=== PATIENT | male | born 1950 | race Caucasian/White ===

== ENCOUNTER 2017-03-28 15:50 | Emergency (ER) | payer OTHER, MEDICAID ==
[2017-03-28 18:28] LABS: BASOPHIL % 0.6 % (0-2); PLATELET COUNT 191 x10^3mcL (130-400); RED CELL DISTRIBUTION WIDTH 14.2 % (11.5-14.5)
[2017-03-28 18:40] LABS: CALCIUM 8.2 mg/dL (8.5-10.1); CARBON DIOXIDE 25.1 mmol/L (21-32); CHLORIDE SERUM 103 mmol/L (98-107); CREATININE SERUM 0.7 mg/dL (0.7-1.3); GFR1 > 60 mL/min; GLUCOSE SERUM 86 mg/dL (74-106); POTASSIUM SERUM 3.4 mmol/L (3.5-5.1); SODIUM SERUM 140 mmol/L (136-145)
[2017-03-28 18:55] LABS: ALKALINE PHOSPHATASE 86 U/L (46-116); AST/SGOT 11 U/L (15-37); BILIRUBIN TOTAL 0.91 mg/dL (0.20-1.00); T4(THYROXINE) 9.6 ug/dL (4.7-13.3); TOTAL PROTEIN, SERUM 7.1 g/dL (6.4-8.2)
[2017-03-28 19:05] LABS: UA SPECIFIC GRAVITY <=1.005 (1.005-1.035); microscopic required? YES; urine erythrocyte 3+ (NEGATIVE)
[2017-03-28 19:07] LABS: ALT/SGPT 14 U/L (16-63)
[2017-03-28 19:15] LABS: ALBUMIN 3.1 g/dL (3.4-5.0)
[2017-03-28 20:47] VITALS: BP 157/94
== END 2017-03-28 20:47 | disposition home or self-care (01) ==
LOC: ED 15:50
PROVIDERS: Emergency Medicine
DX: N39.0 Urinary tract infection, site not specified (principal); D64.9 Anemia, unspecified; I10 Essential (primary) hypertension; G81.91 Hemiplegia, unspecified affecting right dominant side; E87.6 Hypokalemia; Z88.0 Allergy status to penicillin; Z86.73 Personal history of transient ischemic attack (TIA), and cerebral infarction without residual deficits
CPT/HCPCS: 83880; J1956; J7030; Q0092

== ENCOUNTER 2018-11-17 16:44 | Observation (INO) | payer OTHER, MEDICAID ==
[~2018-11-17] VITALS: Ht 172.7 cm; Wt 56.3 kg
[2018-11-17 16:51] VITALS: Ht 172.7 cm; Wt 56.3 kg
--- NOTE | 2018-11-17 16:54 | NUR ---
PT RETURNED TO LOBBY PENDING ROOM AVAILABILITY. VSS. RESPS E/U. NO S/S OF DISTRESS NOTED.
--- NOTE | 2018-11-17 19:57 | NUR ---
PT CAME IN TODAY WITH FOR C/O VOMITING FOR 2 DAYS, STATES THAT PT HAS NOT BEEN EATING WELL OF DRINKING FLUIDS WELL FOR ONE MONTH. PT HAS A HISTORY OF CVA WITH RIGHT SIDE WEAKNESS. PT IS ALERT BUT NON VERBAL WITH RN. PT WAS ABLE TO POINT TO HIS LOCATION OF PAIN ON HIS ABD.
[2018-11-17 20:07] LABS: PLATELET COUNT 216 x10^3mcL (130-400)
[2018-11-17 20:08] LABS: BASOPHIL % 0 % (0-2); RED CELL DISTRIBUTION WIDTH 15.6 % (11.5-14.5)
[2018-11-17 20:13] LABS: CARBON DIOXIDE 27.9 mmol/L (21-32); CHLORIDE SERUM 102 mmol/L (98-107); CREATININE SERUM 0.9 mg/dL (0.7-1.3); GFR1 > 60 mL/min; GLUCOSE SERUM 108 mg/dL (74-106); POTASSIUM SERUM 3.6 mmol/L (3.5-5.1); SODIUM SERUM 139 mmol/L (136-145)
[2018-11-17 20:17] LABS: ALBUMIN 3.5 g/dL (3.4-5.0); ALKALINE PHOSPHATASE 90 U/L (46-116); ALT/SGPT 21 U/L (16-63); AMYLASE 113 U/L (25-115); AST/SGOT 19 U/L (15-37); BILIRUBIN TOTAL 0.9 mg/dL (0.20-1.00); LIPASE 120 IU/L (73-393); MAGNESIUM 2.3 mg/dL (1.8-2.4)
--- NOTE | 2018-11-17 22:27 | NUR ---
PROVIDED PT WITH MARY VALENCIA PER DR TURNER. PT FAMILY MEMBER GIVEN SANDWICH, INSTRUCTED FAMILY THAT PT CANNOT EAT SANDWICH. FAMILY MEMBER VERBALIZED UNDERSTANDING.
[2018-11-17] MEDS ORDERED: ASPIR 8181 MG PO (22:43)
[2018-11-17] MEDS ORDERED: LOSARTAN POTASS50 M1 PO (22:43)
[2018-11-17 23:11] LABS: UA SPECIFIC GRAVITY >=1.030 (1.005-1.035); microscopic required? YES; urine erythrocyte 2+ (NEGATIVE)
[2018-11-17 23:45] VITALS: BP 146/83
--- NOTE | 2018-11-17 23:51 | NUR ---
RECEIVED PT FROM ED VIA JOLIE. ORIENTED PT TO ROOM AND SURROUNDINGS. IV NOTED TO PATENT AND INTACT .TELE 38 PLACED ON PT READING NSR. INSTRUCTED PT ON THE USE OF CALL LIGHT FOR ASSISTANCE. ENDORSD PT TO PRIMARY NURSE ROSEANN
--- NOTE | 2018-11-17 23:55 | NUR ---
RECEIVED PT. PT AWAKE, ALERT, APHASIC. ABLE TO MAKE NEEDS KNOWN. DENIES SOARES/DIZZINESS. TELE #38, SB, HR 58. DENIES CP/PRESSURE. PULSES PALPABLE, NO EDEMA NOTED. LUNG SOUNDS CLEAR, ON RA. DENIES SOB/DIFFICULTY BREATHING. BOWEL SOUNDS ACTIVE. VOIDS FREELY, INCONTINENT. GENERALIZED/RIGHT SIDED WEAKNESS. NONAMBULATORY. SKIN INTACT. IV TO L. HAND, INTACT AND PATENT. BED IN LOWEST POSITION. CALL LIGHT WITHIN REACH. WILL CONTINUE TO MONITOR.
--- NOTE | 2018-11-18 04:09 | NUR ---
PT RESTING IN BED. RR EVEN AND UNLABORED. NO ACUTE DISTRESS NOTED. CALL LIGHT WITHIN REACH. BED IN LOWEST POSITION. WILL CONTINUE TO MONITOR.
[2018-11-18 04:19] VITALS: BP 123/67
[2018-11-18 06:32] LABS: BASOPHIL % 0.2 % (0-2); PLATELET COUNT 165 x10^3mcL (130-400)
[2018-11-18 06:39] LABS: RED CELL DISTRIBUTION WIDTH 15.4 % (11.5-14.5)
[2018-11-18 06:53] LABS: CALCIUM 7.9 mg/dL (8.5-10.1); CARBON DIOXIDE 29.8 mmol/L (21-32); CHLORIDE SERUM 106 mmol/L (98-107); CREATININE SERUM 0.9 mg/dL (0.7-1.3); GFR1 > 60 mL/min; GLUCOSE SERUM 129 mg/dL (74-106); POTASSIUM SERUM 3.3 mmol/L (3.5-5.1); SODIUM SERUM 141 mmol/L (136-145)
--- NOTE | 2018-11-18 07:42 | NUR ---
RECIEVED PT FROM NIGHT NURSE. PT IS LAYING DOWN IN BED WITH HOB UP. PT LOOKS TO BE IN NO ACUTE DISTRESS AT THIS TIME. RESPIRATIONS ARE EVEN AND UNLABORED. IV SITE TO LEFT HAND LOOKS PATENT WITH NO SIGNS OF REDNESS OR SWELLING, IV FLUIDS INFUSING. CALL LIGHT WITHIN REACH. WILL CONTINUE TO MONTIOR.
[2018-11-18 10:04] VITALS: BP 126/77
[2018-11-18 12:20] VITALS: BP 110/68
--- NOTE | 2018-11-18 12:20 | NUR ---
PT RETURNED FROM EGD PROCEDURE ACCOMPANIED BY NURSE. IS AT BEDSIDE. PT IS ON 2L NC AND SATURATION IS 95%. RESPIRATIONS ARE EVEN AND UNLABORED. PT LOOKS TO BE IN NO ACUTE DISTRESS AT THIS TIME AND DENIES ANY PAIN AT THIS TIME. CURRENT VITAL SIGNS ARE BP: 110/68, TEMP: 99.6, HR: 76 AND RR: 18. IV FLUIDS INFUSING. IV SITE LOOKS PATENT WITH NO SIGNS OF REDNESS OR SWELLING. CALL LIGHT WITHIN REACH. WILL CONTINUE TO MONTIOR.
[2018-11-18 13:44] VITALS: BP 123/74
--- NOTE | 2018-11-18 15:20 | NUR ---
PT IS RESTING IN BED WITH HOB UP. RESPIRATIONS EVEN AND UNLABORED ON 2L NC. PT LOOKS TO BE IN NO ACUTE DISTRESS AT THIS TIME. BED IN LOWEST POSITION. CALL LIGHT WITHIN REACH. PT AND FAMILY MEMBER INSTRUCTED TO USE CALL LIGHT IF PT FEELS THE NEED TO USE THE RESTROOM. PT AND FAMILY MEMBER VERBALIZE UNDERSTANDING. WILL CONTINUE TO MONTIOR.
[2018-11-18 16:17] VITALS: BP 105/61
--- NOTE | 2018-11-18 16:35 | NUR ---
PT WAS SEEN FOR DYSPHAGIA. PT HAD COUGH FOR PUREE DIET TRIALS. PT HAD DELAY IN SWALLOW. PT HAD DIFFICULTY WITH SERGIO MOTOR SKILLS INORDER TO INTAKE ANY DIET TRIALS. RECOMMENDATION CONTINUE WITH ALTERNATE MODE OF FEEDING.
--- NOTE | 2018-11-18 18:15 | NUR ---
PT IS LAYING DOWN IN BED WITH HOB UP. FAMILY MEMBER AT BEDSIDE. PT EXPERIENCED LARGE AMOUNTS OF LOOSE STOOL IN RESPONSE TO MEDICATIONS ORDERED BOWEL PREP. PT PUT ON BEDPAN. CALL LIGHT WITHIN REACH. WILL ENDORSE TO ONCOMING SHIFT.
[2018-11-18 22:07] VITALS: BP 128/75
--- NOTE | 2018-11-19 01:11 | NUR ---
PT WITH FREQUENT BOWEL MOVEMENTS, BECOMING MORE CLEAR FROM BOWEL PREP. UNABLE TO TOLERATE PO LACTULOSE. DR MOREJON MADE AWARE. PT IN NO ACUTE DISTRESS. RR EVEN AND UNLABORED. IV PATENT AND INFUSING WELL WITH NO S/S OF INFILTRATION. WILL CONTINUE TO MONITOR.
--- NOTE | 2018-11-19 02:14 | NUR ---
RECEIVED PT FROM PREVIOUS SHIFT PT AWAKE/ALERT/APHASIC. NO S/S OF SOB ON RA. IV PATENT AND INFUSING WELL WITH NO S/S OF INFILTRATION. CALL LIGHT WITHIN REACH. AT BEDSIDE. PT ON BOWEL PREP FOR COLONSCOPY TOMORROW. BED IN LOW POSITION. WILL CONTINUE TO MONITOR.
[2018-11-19 05:57] VITALS: BP 119/71
[2018-11-19 06:34] LABS: ALKALINE PHOSPHATASE 60 U/L (46-116); ALT/SGPT 17 U/L (16-63); AST/SGOT 22 U/L (15-37); BILIRUBIN TOTAL 1.06 mg/dL (0.20-1.00); CALCIUM 7.8 mg/dL (8.5-10.1); CARBON DIOXIDE 27.4 mmol/L (21-32); CHLORIDE SERUM 112 mmol/L (98-107); CREATININE SERUM 0.7 mg/dL (0.7-1.3); GFR1 > 60 mL/min; GLUCOSE SERUM 108 mg/dL (74-106); MAGNESIUM 2.3 mg/dL (1.8-2.4); SODIUM SERUM 148 mmol/L (136-145); TOTAL PROTEIN, SERUM 6.4 g/dL (6.4-8.2)
[2018-11-19 06:52] LABS: ALBUMIN 2.6 g/dL (3.4-5.0)
[2018-11-19 06:53] LABS: POTASSIUM SERUM 2.9 mmol/L (3.5-5.1)
--- NOTE | 2018-11-19 06:56 | NUR ---
PAGED DR MARIELLA PERRY K+ 2.9. WILL AWAIT RETURN CALL AND ENDORSE CARE TO ONCOMING SHIFT
[2018-11-19 06:58] LABS: BASOPHIL % 0.3 % (0-2); PLATELET COUNT 165 x10^3mcL (130-400); RED CELL DISTRIBUTION WIDTH 15.4 % (11.5-14.5)
[2018-11-19 07:20] VITALS: BP 112/54
--- NOTE | 2018-11-19 07:21 | NUR ---
RECEIVED PT FROM SHIFT NURSE ASLEEP BUT AROUSABLE. NO ACUTE DISTRESS NOTED. IV INTACT AND INFUSING WELL. BED IN LOW POSITION. CALL LIGHT WITHIN REACH. WILL CONTINUE TO MONITOR.
--- NOTE | 2018-11-19 10:38 | NUR ---
PT LEFT FOR PROCEDURE.
[2018-11-19 12:10] VITALS: BP 112/54
--- NOTE | 2018-11-19 12:47 | NUR ---
PT BACK FROM PROCEDURE. ASLEEP BUT AROUSABLE. NO ACUTE DISTRESS NOTED. T 97.4 BP 115/67 HR 57 RR 16. RESP EVEN AND UNLABORED ON RA. 02 SAT 99% IV INTACT AND PATENT. BED IN LOW POSITION. CALL LIGHT WITHIN REACH. WILL CONTINUE TO MONITOR.
[2018-11-19 12:49] VITALS: BP 115/67
--- NOTE | 2018-11-19 14:23 | NUR ---
Initial Nutrition Assessment- Dx: Intractable Vomiting, Ulcer vs Gastritis PMHx: CVA, hiatal hernia PSHx: none Labs: Na 148 H, BG 108H, ALB 2.6L, Ca 7.8L, WBC 4.12L, H/H 11.9L/35L Meds: ativan, colace, D5%w,NaCl IV, miralax Diet: 2gm Na diet for lunch 11/19, previously NPO PO Intake: Ht: 5'8 Wt: 124 lb, 56 kg BMI: 18.9 kg/m2 (Underweight for age) IBW: 154 lb, 70 kg %IBW: 81 UBW: ask pt. Age: 68 yrs old/Male Food Allergies: Skin: no skin breakdown. Benjamin: 14 Edema: none GI: abd is soft and flat, w/ active bowel sounds. Last BM 11/18/18 Trigger received for pt appears underweight/malnourished. Per H&P, 68 M PMH possible hiatal hernia, CVA in 2005, presenting with persistent nausea and vomiting with difficulty keeping his food down for a few days. Per bedhuddle discussion, pt is scheduled for colonoscopy today. Per FURNACE FITTER notes 11/18/18: pt had cough for pureed diet trials. Pt had delay in swallow. Pt had difficulty w/ daryl motor skills in order to intake any diet trials. Rec: continue w/ alternate mode of feeding. Pt was not in room at time of RD visit. Per RN report, pt refused to take his medications this morning. MD put order for 2gm Na diet for lunch and RN reported pt was able to tolerate food cut into small pieces. at bedside reported that pt is able to tolerate chopped food items at home. RN and charge aide made aware of rec. Problem with: N/V: yes D: no C: no Problems with: Chewing: no Swallowing: no Current appetite: poor Recent wt change: unknown %wt change: n/a Vitamin/Supplement use: unknown Special diet at home: unknown Physical activity: none, pt is non-ambulatory, w/ R-sided weakness and contracture to R arm. Education: is not appropriate at this time. Estimated Nutritional Needs Based on ideal body weight 70 kg Energy: 9280-0280 kcal/d (30-35 kcal/kg-wt gain promotion) Protein: 84-105 g/d (1.2-1.5 g/kg- Geriatric maintenance and wt gain promotion) Fluid: 8031-9774 ml/d (1 ml/kcal-fluid balance) or per doctor Nutrition Diagnosis 1. Difficulty swallowing r/t altered daryl motor skills AEB delay in swallowing and difficulty to intake any diet trial per [facility] [employer]TER. Intervention 1. Recommend Mechanical soft GI diet w/ Ensure Enlive QD. ONS will provide additional 350 kcal and 20 gm protein daily. Monitor/Evaluate Goal: PO intake at least 75% of estimated needs Monitor: PO intake, Labs, GI function F/U in 2-3 days as high risk 11/21-11/22
--- NOTE | 2018-11-19 14:24 | NUR ---
1. Recommend Mechanical soft GI diet w/ Ensure Enlive QD. ONS will provide additional 350 kcal and 20 gm protein daily. RN and rn relief charge made aware of diet rec.
[2018-11-19 15:35] VITALS: BP 112/54
--- NOTE | 2018-11-19 16:03 | NUR ---
PT EATING JELLO WITH ASSISTANCE FROM . NO ACUTE DISTRESS NOTED. IV INTACT AND PATENT. BED IN LOW POSITION. CALL LIGHT WITHIN REACH. WILL CONTINUE TO MONITOR.
--- NOTE | 2018-11-19 18:19 | NUR ---
PT EATING DINNER WITH ASSISTANCE FROM . NO ACUTE DISTRESS NOTED. IV INTACT AND PATENT. BED IN LOW POSITION. CALL LIGHT WITHIN REACH. WILL BE ENDORSED.
--- NOTE | 2018-11-19 20:11 | NUR ---
PATIENT RECEIVED AWAKE, ALERT, APHASIC IN BED. RESPIRATION EVEN AND UNLABORED, ON ROOM AIR. ONGOING POTASSIUM RIDER AT THE LEFT HAND. INCONTINENT OF BOWEL AND BLADDER. RIGHT SIDED WEAKNESS, RIGHT ARM CONTRACTURE, TOTAL CARE, HX OF CVA. SKIN DRY AND INTACT. ON TELE #38. WILL CONTINUE TO MONITOR.
[2018-11-19 21:03] VITALS: BP 145/85
--- NOTE | 2018-11-20 06:03 | NUR ---
PATIENT RESTING IN BED. RESPIRATION EVEN AND UNLABORED, ON ROOM AIR. SALINE LOCK TO LEFT HAND PATENT AND INTACT. INCONTINENT OF URINE. KEPT CLEAN AND DRY. TURNED EVERY 2 HRS. ASSISTED WITH NEEDS. SAFETY OBSERVED. PLACED BED IN THE LOWEST POSITION. PLACED CALL LIGHT WITHIN REACH AT ALL TIMES.
[2018-11-20 06:05] VITALS: BP 119/72
--- NOTE | 2018-11-20 07:12 | NUR ---
RECEIVED PT FROM SHIFT NURSE ASLEEP BUT AROUSABLE. APPEARS IN NO ACUTE DISTRESS. RESP EVEN AND UNLABORED ON RA. HEPLOCK PATENT. BED IN LOW POSITION . SIDE RAILS UPX2 AND CALL LIGHT WITHIN REACH. WILL CONTINUE TO MONITOR.
[2018-11-20 10:22] VITALS: BP 132/87
--- NOTE | 2018-11-20 10:56 | NUR ---
PT RESTING IN BED WATCHING TV. NO ACUTE DISTRESS NOTED. BED IN LOW POSITION. CALL LIGHT WITHIN REACH. WILL CONTINUE TO MONITOR.
--- NOTE | 2018-11-20 12:35 | NUR ---
PT SITTING UP IN BED EATING LUNCH ASSISTED BY . NO ACUTE DISTRESS NOTED. BED IN LOW POSITION. CALL LIGHT WITHIN REACH. WILL CONTINUE TO MONITOR.
[2018-11-20 13:45] VITALS: BP 145/94
[2018-11-20 14:01] VITALS: BP 132/87
--- NOTE | 2018-11-20 15:15 | NUR ---
PT AWAKE/ALERT UPON DC. NO ACUTE DISTRESS NOTED. AT BEDSIDE. EDUCATION PROVIDED. FOLLOW UP APT GIVEN. VERBALIZED UNDERSTANDING. IV REMOVED AND CATH INTACT. PERSONAL BELONGINGS TAKEN HOME. INSTRUCTED TO INFORM NURSES STATIONS BEFORE LEAVING.
--- NOTE | 2018-11-20 17:06 | NUR ---
ACCOMPANIED BY RN AND TO LOBBY VIA ELECTRIC WHEELCHAIR.
== END 2018-11-20 17:09 | disposition home or self-care (01) | DRG 392 ==
LOC: ED 16:44 → DU 22:50
PROVIDERS: Emergency Medicine; Internal Medicine Gastroenterology; Internal Medicine Pulmonary Disease; ADMIT Internal Medicine
PROC: 0DB68ZX Excision of Stomach, Via Natural or Artificial Opening Endoscopic, Diagnostic (ICD-10-PCS; principal; 2018-11-18 10:00)
PROC: 0DJD8ZZ Inspection of Lower Intestinal Tract, Via Natural or Artificial Opening Endoscopic (ICD-10-PCS; 2018-11-19)
DX: A08.4 Viral intestinal infection, unspecified (principal); I69.951 Hemiplegia and hemiparesis following unspecified cerebrovascular disease affecting right dominant side; Z68.1 Body mass index [BMI] 19.9 or less, adult; K21.9 Gastro-esophageal reflux disease without esophagitis; I69.320 Aphasia following cerebral infarction; I10 Essential (primary) hypertension; E86.0 Dehydration; K64.8 Other hemorrhoids; Z79.82 Long term (current) use of aspirin
CPT/HCPCS: 43235; 45378; 92526-GN; 92610; C9113; G0378; J1200; J1610; J2250; J2310; J2765; J3010; J3480; J3490; J7042

== ENCOUNTER 2019-01-13 09:39 | Emergency (ER) | payer OTHER, MEDICAID ==
[~2019-01-13] VITALS: Ht 175.3 cm; Wt 72.6 kg
[~2019-01-13 09:39] MED LIST: ASPIR 8181 MG PO; LOSARTAN POTASS50 M1 PO
[2019-01-13 09:47] VITALS: Ht 175.3 cm; Wt 72.6 kg
[2019-01-13] MEDS ORDERED: LIPI10 PO (11:27)
[2019-01-13] MEDS ORDERED: LOSARTAN POTASS50 M1 PO (11:27)
[2019-01-13 11:32] LABS: PLATELET COUNT 324 x10^3mcL (130-400); RED CELL DISTRIBUTION WIDTH 15.3 % (11.5-14.5)
[2019-01-13 11:33] LABS: BASOPHIL % 0.4 % (0-2)
[2019-01-13 11:34] LABS: CARBON DIOXIDE 23.1 mmol/L (21-32); CHLORIDE SERUM 102 mmol/L (98-107); CREATININE SERUM 0.8 mg/dL (0.7-1.3); GFR1 > 60 mL/min; GLUCOSE SERUM 141 mg/dL (74-106); POTASSIUM SERUM 3.6 mmol/L (3.5-5.1); SODIUM SERUM 138 mmol/L (136-145)
[2019-01-13 11:39] LABS: ALKALINE PHOSPHATASE 102 U/L (46-116); ALT/SGPT 23 U/L (16-63); AST/SGOT 19 U/L (15-37); BILIRUBIN TOTAL 0.5 mg/dL (0.20-1.00)
[2019-01-13 11:42] LABS: ALBUMIN 3.2 g/dL (3.4-5.0)
[2019-01-13 14:45] VITALS: BP 172/134
== END 2019-01-13 14:45 | disposition short-term general hospital (02) ==
LOC: ED 09:39
PROVIDERS: Emergency Medicine
DX: R33.9 Retention of urine, unspecified (principal); R31.9 Hematuria, unspecified; R10.30 Lower abdominal pain, unspecified; I10 Essential (primary) hypertension; Z88.0 Allergy status to penicillin; Z86.73 Personal history of transient ischemic attack (TIA), and cerebral infarction without residual deficits
CPT/HCPCS: J1956; J2270; J2405